=== PATIENT | male | born 1960 | race Caucasian/White ===

== ENCOUNTER → 2017-07-04 | Day surgery (SDC) | payer OTHER ==
[~2017-07-04] VITALS: Ht 190.5 cm; Wt 114.3 kg
[~2017-07-04] MED LIST: AMIT10TA6 PO; HYDR-4003 PO; LISI10TA PO; Lactated Ringer's 1,000 ML IV SCH; Lidocaine PF 2% 10 mL Inj ONE; POTA-62 PO; PROP60CA2 PO; Propofol 10,000 mCg/mL 20 mL Inj ONE; TOPI-59 PO; TRIA1TAB5 PO; VERA240C PO
[2017-07-04 12:21] VITALS: BP 130/84; PULSE 55; RESP 17; O2SAT 97
--- NOTE | 2017-07-04 12:46 | PCM.HPANE ---
Patient Data Surgeon Admitting Provider: Attending Provider:Maryann Horvath MD Primary Care Physician:Verónica Cuello Other Provider:Dania Olmos Anesthesia Reason for Visit Screening Z12.11 Ht/WT & BMI Height (Feet): 6 Height (Inches): 3 Weight (Kilograms): 114.31 Body Mass Index 31.00 Allergies Coded Allergies: venlafaxine (Verified Adverse Reaction, Severe, suicidal, 06/29/17) Past Anesthesia History Anesthesia History: Positive for:: Anesthesia Reactions (HARD TIME WAKING UP IN THE PAST), Denies:: Fam Anesthesia Reaction Diabetes History Hx Diabetes?: No MRSA MRSA: No Medications Hypertension Medication: Yes Home Meds Incl Beta Teo: Yes (PROPANOLOL) Date Beta Teo Taken: Jul 03, 2017 Time Beta Teo Taken: 2199 Reported Medications Verapamil ER 240 Mg Cap24h.ith669 Mg PO DAILY Ref 0 06/29/17 Triamterene/HCTZ 75-50 mg 1 Each Tablet1 Tablet PO DAILY Ref 0 06/29/17 Topiramate 25 Mg Vxhajn67 Mg PO BID Ref 0 06/29/17 Propranolol ER 60 Mg Cap.sa.24h60 Mg PO DAILY 06/29/17 Potassium Chloride ER 20 Meq Tablet.er20 Meq PO DAILY Ref 0 TAKE WITH FOOD 06/29/17 Lisinopril 10 Mg Xrqivr96 Mg PO DAILY 30 Days Ref 0 06/29/17 Hydrocodone-Acetaminophen 5-325 mg 1 Each Tablet1 Tablet PO Q4H PRN For Pain Ref 0 06/29/17 Amitriptyline 10 Mg Hvnutu11 Mg PO HS Ref 0 06/29/17 Discontinued Reported Medications Oxycodone/APAP-Expunged Drug, Do Not Renew! (Percocet 5/325-Expunged Drug, Do Not Renew!)1 Each Tablet1 Tab PO PRN Ref 0 08/23/09 FLUoxetine-Expunged Drug, Do not Renew! (Prozac-Expunged Drug, Do not Renew!)20 Mg Cap20 Mg PO HS Ref 0 08/23/09 Lisinopril-Expunged Drug, Do Not Renew! 20 Mg Flqlnd04 Mg PO HS Ref 0 08/23/09 Verapamil-Expunged Drug, Do Not Renew! 240 Mg Szlo584 Mg PO BID Ref 0 08/23/09 History History of ENT Problems?: No HEENT History: Denies:: Abnormal Airway Cataracts Difficult Intubation Dysphagia Glaucoma Hearing Problem Sinus Problem TMJ Denture Type: None Teeth Condition: Within Normal Limits Hx of Heart Problems?: Yes Cardiovascular History: Positive for:: Hypertension Denies:: Cardiac Surgery Chest Pain Congestive Heart Failure Edema Heart Murmur Irregular Heartbeat Pacemaker Thrombophlebitis Hx of Respiratory Problem?: No Respiratory History: Denies:: Asthma COPD Chest Surgery Cough Dyspnea Emphysema Hemoptysis Oxygen Administration Pneumonia Pulmonary Embolism Tuberculosis Use of C-PAP Machine Use of Inhalers / NEBS Hx Neurologic Problems?: Yes Neurological History: Positive for:: Headaches (migraines) Seizures ("spontaneous tortalitis") Denies:: CVA Parkinson's Disease Hx of GI Problems?: Yes Other History/Comment COLON CANCER Hx of Problems?: No Genitourinary History: Denies:: Urinary Tract Infection Male Hx: Denies:: Scrotal Mass Testicular Surgery Hx Musculoskeletal Problems?: Yes Musculoskeletal History: Positive for:: Joint Replacement Denies:: Back Injury Musculoskeletal Trauma Hx of Psycho/Social Problems?: Yes Psycho Social History: Positive for:: Anxiety Hx Depression (prozac) Denies:: Bipolar Disorder Suicide Attempt Hx Surgeries?: Yes (Right knee surgery " a long time ago.", right [id number]) Hx Any Other Health Problems?: Yes Other History: Positive for:: Hospitalization Denies:: Cancer Endocrine Disease Thyroid Disease History Blood Transfusions: Denies:: Blood Transfusions Hx Diabetes: No Hx Alcohol Use: Yes (quit in 1989)Hx Substance Use: No Smoking Status: Former Smoker Have You Smoked inLast 12 mo: No Stop/Bang Treated for Sleep Apnea?: No Do You Have a CPAP Machine?: No S-Snoring: Do You Snore Loudly: Yes T-Tired: feel tired, fatigued: Yes O-Obsered: Observed not breath: No P-Blood Pressure: treated: Yes B- Body Mass Index > 35 kg/m2: Yes A- Age over 50: Yes N- Neck Large Circumference: Yes G- Gender Male: Yes BEVERLY Total Score: 7 BEVERLY Risk Assessment: High Risk, =/>3 Yes BEVERLY Category 4 OutPt Procedure: Yes Risk Assessment Category Category 1A: Patient has history of documented sleep apnea, and HAS NOT received any narcotic, sedative or anesthesia administration during this stay. Category 1B: Patient has history of documented sleep apnea, and HAS received any narcotic , sedative or anesthesia administration during this stay Category 2: Patient has SUSPECTED Obstructive Sleep Apnea, and HAS received any narcotic , sedative or anesthesia administration during this stay. Category 3: Patient has SUSPECTED Obstructive Sleep Apnea and HAS NOT received narcotic, sedative or anesthesia administration during this stay. Category 4: Outpatient in Procedural Areas with known sleep apnea or who screen positive for High Risk via the STOP/BANG questionnaire. Exam Exam Vital Signs Vital Signs Date Time Temp Pulse Resp B/P Pulse Ox O2 Delivery O2 Flow Rate FiO2 07/04/17 12:21 37 55 17 130/84 97 Room Air General Appearance: Alert, Oriented X3, Cooperative, No Acute Distress HEENT/AIRWAY: MP 2 Lungs: Clear to Auscultation, Normal Air Movement Heart: Exam Unremarkable, Regular Rate/Rhythm, No Murmurs/Rubs/Gallops Plan Impression Patient chart reviewed, patient interviewed and anesthestic plan with risks, benefits, and alternatives discussed, and informed consent obtained. Madhav Cervantes MD Jul 04, 2017 12:46
[2017-07-04] MEDS: Lactated Ringer's 1,000 ML IV ONE ×2 (13:16→13:43)
[2017-07-04 13:48] VITALS: BP 108/69; PULSE 53; RESP 14; O2SAT 95
[2017-07-04 13:58] VITALS: BP 107/78; PULSE 55; RESP 14; O2SAT 98
[2017-07-04 14:08] VITALS: BP 117/71; PULSE 51; RESP 14; O2SAT 98
--- NOTE | 2017-07-04 14:09 | ENDO ---
[address] [address] ENDOSCOPY PROCEDURE PATIENT: RENA HAYES : 1960 MR#: [id number] ADMIT: 07/04/2017 JOB ID: [id number] DATE: 07/04/2017 PREPROCEDURAL DIAGNOSIS: Screening colonoscopy. POSTPROCEDURAL DIAGNOSIS: Diverticulosis. PROCEDURE PERFORMED: Colonoscopy. SURGEON: Maryann Horvath M.D. ASSISTANTS: Madi Hernandez M.D., R-3 HISTORY OF PRESENT ILLNESS: This is a 56-year-old man who presented to my office with complaint of an umbilical hernia. During the course of the evaluation, it was found that he had never had a colonoscopy. Therefore, screening colonoscopy was recommended. FINDINGS: 1. There were a few scattered diverticula throughout the colon. 2. Otherwise normal colonoscopy to the terminal ileum. INSTRUMENT: Olympus PCF H 190 L. ANESTHESIA: Monitored anesthesia care was provided by Dr. Cervantes. WITHDRAWAL TIME: 27 minutes. PREP: Fair. A significant amount of irrigation and suctioning was required to adequately visualize all of the mucosa. Adequate visualization was achieved. DESCRIPTION OF PROCEDURE: The patient was brought to the procedure suite and placed in left lateral decubitus position. Moderate anesthesia was induced by the anesthesiologist. Rectal examination was performed. It was normal. The colonoscope was advanced through the anus, rectum, and to the cecum, and into the distal terminal ileum. There is a fair amount of food stuffs in dependent portions of the sigmoid colon and cecum, requiring a fair amount of suction irrigation in order to adequately visualize the mucosa. Once adequate visualization was achieved, the colonoscope was slowly withdrawn. A few scattered diverticula were seen, but there were no masses or polyps. Retroflexed examination of the rectum was normal. The patient was then taken to the post procedural suite in good condition. SPECIMENS: None. COMPLICATIONS: None. ESTIMATED BLOOD LOSS: None. DISPOSITION: Repeat in 10 years.
--- NOTE | 2017-07-04 14:16 | PCM.ANEP1 ---
Post Anesthesia PACU Phase 1 Assessment Date of Service: Jul 04, 2017 Vital Signs Vital Signs Date Time Temp Pulse Resp B/P Pulse Ox O2 Delivery O2 Flow Rate FiO2 07/04/17 14:08 51 14 117/71 98 Room Air 07/04/17 13:58 55 14 107/78 98 Room Air 07/04/17 13:48 36.4 53 14 108/69 95 Room Air 07/04/17 12:21 37 55 17 130/84 97 Room Air Anesthetic Administered: MAC Level of Alertness: Awake, talking Pain: No Nausea or Vomiting: No CV Function & Hydration Stable: Yes Airway Device: Oxygen Delivery: Room Air Lungs: Clear to Auscultation, Normal Air Movement PACU Phase 2 Assessment Complications: No Follow up Care: No Patient Instructions Provided: N/A Madhav Cervantes MD Jul 04, 2017 14:16
== END | disposition home or self-care (01) ==
LOC: END 00:33
PROVIDERS: ATTEND Surgery
DX: Z12.11 Encounter for screening for malignant neoplasm of colon (principal); K57.30 Diverticulosis of large intestine without perforation or abscess without bleeding; I10 Essential (primary) hypertension; G89.29 Other chronic pain; F41.8 Other specified anxiety disorders; Z87.442 Personal history of urinary calculi; Z86.69 Personal history of other diseases of the nervous system and sense organs; Z86.73 Personal history of transient ischemic attack (TIA), and cerebral infarction without residual deficits; Z79.891 Long term (current) use of opiate analgesic; Z87.891 Personal history of nicotine dependence; Z96.651 Presence of right artificial knee joint
CPT/HCPCS: G0121; J2704; J7120

== ENCOUNTER → 2017-07-26 | Day surgery (SDC) | payer OTHER ==
--- NOTE | 2017-07-12 17:08 | PCM.ANEPRE ---
Anesthesia Pre-Op Review Reason for Review: 56 yo man with DNR who previously did not want to suspend- will likely suspe Anesthesia Recommendations: Proceed with Procedure Additional Comments Mariola goes by Reza; scheduled for upcoming umbilical hernia repair. Pt has DNR order and was surprised at colonoscopy that is anesthesiologist strongly recommended he suspend DNR status during the procedure (or Anesthesiologist may not have continued caring for him Pt had evidently not experienced this requests for any of his other multiple surgeries. Long conversation on the phone today with Reza about the unique situation that anesthesiologists are in when delivering anesthesia, potentially inducing respiratory arrest or cardiac problems simply by the nature of anesthesia, unconsciousness, and surgical impact on the patient. We discussed the ethical dilemmas of easily reversible conditions that we induce, respect for patient wishes and autonomy, to first do no harm, etc. He feels he can suspend DNR for his next surgery, and would like to discuss it further at some point. A very collegial conversation with an articulate and thoughtful patient. Chart Reviewed by: Deandre Mckeon MD, MD Jul 12, 2017 17:07
--- NOTE | 2017-07-25 20:23 | PCM.HPANE ---
Patient Data Surgeon Admitting Provider: Attending Provider:Maryann Horvath MD Primary Care Physician:Verónica Culelo Other Provider:Dania Olmos Anesthesia Reason for Visit Umbilical Hernia Ht/WT & BMI Height (Feet): 6 Height (Inches): 1 Weight (Kilograms): 119.83 Body Mass Index 35.00 Allergies Coded Allergies: venlafaxine (Verified Adverse Reaction, Severe, suicidal, 07/20/17) Past Anesthesia History Anesthesia History: Positive for:: Anesthesia Reactions (difficulty waking up) , Denies:: Abnormal Airway, Difficult Intubation, Fam Anesthesia Reaction Diabetes History Hx Diabetes?: No (last hgb A1c 5.7 on 04/26/17- being monitored) MRSA MRSA: No Medications Hypertension Medication: Yes Home Meds Incl Beta Teo: Yes Reported Medications Verapamil ER 240 Mg Cap24h.qsd717 Mg PO DAILY Ref 0 06/29/17 Triamterene/HCTZ 75-50 mg 1 Each Tablet1 Tablet PO DAILY Ref 0 06/29/17 Topiramate 25 Mg Rxtdhe68 Mg PO BID Ref 0 06/29/17 Propranolol ER 60 Mg Cap.sa.24h60 Mg PO DAILY 06/29/17 Potassium Chloride ER 20 Meq Tablet.er20 Meq PO DAILY Ref 0 TAKE WITH FOOD 06/29/17 Lisinopril 10 Mg Oyyszv63 Mg PO DAILY 30 Days Ref 0 06/29/17 Hydrocodone-Acetaminophen 5-325 mg 1 Each Tablet1 Tablet PO Q4H PRN For Pain Ref 0 06/29/17 Amitriptyline 10 Mg Wvygkr44 Mg PO HS Ref 0 06/29/17 History History of ENT Problems?: No HEENT History: Denies:: Abnormal Airway Cataracts Difficult Intubation Dysphagia Hearing Problem Sinus Problem TMJ Denture Type: None Teeth Condition: Within Normal Limits Hx of Heart Problems?: Yes Cardiovascular History: Positive for:: Hypertension Denies:: Cardiac Surgery Chest Pain Congestive Heart Failure Edema Heart Murmur Irregular Heartbeat Pacemaker Thrombophlebitis Hx of Respiratory Problem?: No Respiratory History: Denies:: Asthma COPD Chest Surgery Cough Dyspnea Emphysema Hemoptysis Oxygen Administration Pneumonia Pulmonary Embolism Tuberculosis Use of C-PAP Machine Hx Neurologic Problems?: Yes Neurological History: Positive for:: Headaches (migraines) Seizures ("spontaneous TORTICOLLIS) Denies:: CVA Parkinson's Disease Hx of GI Problems?: Yes Other GI Pertinent History: umbilical hernia current admission problem Hx of Problems?: No Genitourinary History: Positive for:: Kidney Stones (prior hx of - lithotripsy ) Denies:: Urinary Tract Infection Male Hx: Denies:: Prostate Problems Scrotal Mass Testicular Surgery Skin History: Denies:: History Skin Disorders? Pressure Ulcers Hx Musculoskeletal Problems?: Yes Musculoskeletal History: Positive for:: Musculoskeletal Trauma (hx of shoulder surgery) Osteoarthritis Denies:: Back Injury Joint Replacement Hx of Psycho/Social Problems?: Yes Psycho Social History: Positive for:: Anxiety Hx Depression (prozac) Denies:: Bipolar Disorder Suicide Attempt Hx Surgeries?: Yes (Right knee surgery " a long time ago.", right [id number]) Hx Any Other Health Problems?: Yes Other History: Positive for:: Hospitalization Denies:: Cancer Endocrine Disease Thyroid Disease History Blood Transfusions: Denies:: Blood Transfusions Hx Diabetes: No (last hgb A1c 5.7 on 04/26/17- being monitored) Hx Alcohol Use: YesAlcoholic Drinks Per Day: 1-2 times weekHx Substance Use: No Smoking Status: Former Smoker Have You Smoked inLast 12 mo: No Stop/Bang S-Snoring: Do You Snore Loudly: No T-Tired: feel tired, fatigued: No O-Obsered: Observed not breath: No P-Blood Pressure: treated: Yes B- Body Mass Index > 35 kg/m2: No A- Age over 50: Yes N- Neck Large Circumference: No G- Gender Male: Yes BEVERLY Total Score: 3 BEVERLY Risk Assessment: Low Risk, <3 Yes Risk Assessment Category Category 1A: Patient has history of documented sleep apnea, and HAS NOT received any narcotic, sedative or anesthesia administration during this stay. Category 1B: Patient has history of documented sleep apnea, and HAS received any narcotic , sedative or anesthesia administration during this stay Category 2: Patient has SUSPECTED Obstructive Sleep Apnea, and HAS received any narcotic , sedative or anesthesia administration during this stay. Category 3: Patient has SUSPECTED Obstructive Sleep Apnea and HAS NOT received narcotic, sedative or anesthesia administration during this stay. Category 4: Outpatient in Procedural Areas with known sleep apnea or who screen positive for High Risk via the STOP/BANG questionnaire. Exam Exam General Appearance: Alert, Oriented X3, Cooperative, No Acute Distress HEENT/AIRWAY: MP 2 Lungs: Clear to Auscultation Heart: Exam Unremarkable, Regular Rate/Rhythm Plan Impression Patient chart reviewed, patient interviewed and anesthestic plan with risks, benefits, and alternatives discussed, and informed consent obtained. ASA Physical Status: ASA2 Mod Systemic Disease Anesthetic Plan: GA Bene/Risks/Altern/Consents: Yes HP Complete Prior to Induction: Yes Dionna Christie MD Jul 25, 2017 20:23
[2017-07-26] VITALS (10 sets, daily range): BP systolic 94–122; BP diastolic 52–82; PULSE 43–57; RESP 11–18; O2SAT 95–100
[~2017-07-26] VITALS: Ht 185.4 cm; Wt 119.8 kg
[~2017-07-26] MED LIST changes: +ACET-171 PO; +Bupivacaine-MPF 0.5% 30 mL Inj INFILTRATE ONE; +CeFAZolin Inj 2 GM in IV Premix 1 EACH IV ONE; +Dexamethasone 4 mg/mL Inj IVPUSH PRN; +EPHEDrine Sulfate 50 mg/mL Inj IVPUSH PRN; +EPHEDrine/NS 5 mg/mL 5 mL Syringe ONE; +Glycopyrrolate 0.2 MG/ML 1mL Inj ONE; +IBUP-1827 PO; +Labetalol 5 mg/mL 20 mL Inj IV PRN; +Lactated Ringer's 1,000 ML IV ONE; +Lactated Ringer's 500 ML IV PRN; -Lidocaine PF 2% 10 mL Inj ONE; +MetoCLOpramide 5 mg/mL 2 mL Inj IVPUSH PRN; +Neostigmine 1 mg/mL 10 mL Inj ONE; +OXYC-530 PO; +Ondansetron 2 mg/mL 2 mL Inj IVPUSH PRN; +Ondansetron 2 mg/mL 2 mL Inj ONE; +POLY17PO6 PO; +Phenylephrine 10,000 mCg/mL Inj IVPUSH PRN; +Succinylcholine Chloride 20 mg/mL 5 mL Inj ONE; +fentaNYL-PF 50 mCg/mL 2 mL Inj IVPUSH PRN; +fentaNYL-PF 50 mCg/mL 2 mL Inj ONE
--- NOTE | 2017-07-26 07:39 | PCM.DISURG ---
Surgical Discharge Instruction Date of Service Jul 26, 2017 Dates of Hospitalization Date of Hospital Admission Providers Admitting Physician: Primary Care Physician: Verónica Cuello Attending Physician: Maryann Horvath MD Diet Discharge Diet: No restrictions Activity Discharge Activity-General: Be up and about, Balance rest and activity, No lifting >15 pounds for 2 weeks, No driving while taking narcotic Dressing and Incisional Care Dressing Care: Allow Steri Stripes to fall off (this usually takes 1-2 weeks), Remove outer dressing after 24 hrs Hygiene: May shower (after 24 hours), DO NOT soak incision under water (for 2 weeks), NO bathtub, hot tub or whirlpool (for 2 weeks) Follow Up Plan Mid-level Provider (F9): Harsh Gardner PA-C Follow-up appointment: Weeks (2-4) Madi Hernandez MD Jul 26, 2017 07:39
--- NOTE | 2017-07-26 09:26 | PCM.SURGOP ---
Surgical Operative Report Date of Service: Jul 26, 2017 Pre Operative Diagnosis Umbilical hernia Post Operative Diagnosis Umbilical hernia Procedure: Laparoscopic umbilical hernia repair with mesh Surgeon and Senior Quality Manager: Surgeon: Maryann Horvath MD Assistants: Madi Hernandez M.D. R3; Maria Elena Cheung MS3 Indication for Procedure This is a 56-year-old man who presented with an umbilical hernia. It was slowly enlarging over time. Occasionally caused pain. He desired repair. Laparoscopic repair was chosen based on the patient's body habitus. Findings: Umbilical hernia without incarcerated viscera. The fascial defect was 2 cm in size. Procedure Details The patient was brought to the operating room and placed in supine position. General endotracheal anesthesia was smoothly induced. Antibiotics were infused. A warming blanket and SCDs were placed. The operative field was prepped and draped in sterile fashion. A Luevano had been placed. A pause was performed to confirm the correct patient, procedure, site, and side. A Veress needle was placed in the left upper quadrant of the abdomen was insufflated. An Optiview trocar was then used with an 11 mm port to enter the abdomen. Two additional 5 mm ports are placed in the left midabdomen and left lower quadrant. The umbilical hernia defect was visualized and found to contain no viscera or incarcerated omentum. The defect was measured and found to be 2 cm in diameter. Four 0 PDS stitches were used laparoscopically using a Gasper-Luna device to close the defect. Once the defects were closed, a piece of mesh was fashioned to place deep to them. An 11.4 cm circular piece of Ventralight ST dual sided mesh with the Echo positioning system was chosen. An OptiFix tacking device with absorbable tacks was used to create the outer row of tacks at 1 cm intervals. The Echo balloon was removed. An inner row of tacks was then placed, 3 of which were in the midline. The ports were then removed and the abdomen was desufflated. Skin was then closed with running 4-0 Monocryl. Half percent Marcaine with epinephrine was infused at all port sites and at the umbilicus. Sterile dressings were placed. All sponge, needle, and instrument counts were correct at the end of the case. The patient was awakened from general anesthesia and taken to the postoperative care unit in good condition. Complications There were no periprocedural complications identified. Surgical Specimen Removed: No Specimen sent to Pathology: No Anesthetic Plan: GA Grafts, Implants: None, Implants-See Implant Record Output, Estimated Blood Loss: 5 (ml) Blood Administration during manriquez: No Maryann Horvath MD Jul 26, 2017 09:26
[2017-07-26] MEDS: HYDROmorphone 1 mg/mL Inj IVPUSH PRN ×2 (10:07→10:29)
--- NOTE | 2017-07-26 10:46 | PCM.ANEP1 ---
Post Anesthesia PACU Phase 1 Assessment Vital Signs Vital Signs Date Time Temp Pulse Resp B/P Pulse Ox O2 Delivery O2 Flow Rate FiO2 07/26/17 09:40 36.7 49 11 107/61 97 Room Air 07/26/17 09:35 48 12 111/61 96 Room Air 07/26/17 09:30 36.2 48 13 115/59 96 Room Air 07/26/17 09:25 51 14 110/62 95 Room Air 07/26/17 09:20 46 14 111/67 99 Simple Mask 8 07/26/17 09:15 44 14 109/61 100 Simple Mask 8 07/26/17 09:10 36.2 43 14 114/67 100 Simple Mask 8 07/26/17 06:15 36.5 57 18 122/82 95 Room Air Anesthetic Administered: GA Level of Alertness: Awake, talking MAHAN's with Equal Strength: Yes Pain: Yes Pain Scale Score: 5 Nausea or Vomiting: No CV Function & Hydration Stable: Yes Airway Device: Oxygen Delivery: Room Air Lungs: Clear to Auscultation PACU Phase 2 Assessment Complications: No Follow up Care: No Patient Instructions Provided: Yes Dionna Christie MD Jul 26, 2017 10:46
== END | disposition home or self-care (01) ==
LOC: SAS 05:46
PROVIDERS: ATTEND Surgery
DX: K42.9 Umbilical hernia without obstruction or gangrene (principal); I10 Essential (primary) hypertension; F41.8 Other specified anxiety disorders; M19.90 Unspecified osteoarthritis, unspecified site; M25.50 Pain in unspecified joint; Z86.69 Personal history of other diseases of the nervous system and sense organs; Z87.442 Personal history of urinary calculi; Z86.73 Personal history of transient ischemic attack (TIA), and cerebral infarction without residual deficits; Z79.891 Long term (current) use of opiate analgesic; Z87.891 Personal history of nicotine dependence
CPT/HCPCS: 49652; C1781; J0330; J0690; J1170; J1885; J2405; J2704; J2710; J3010; J7120